=== PATIENT | female | born 1940 | race Caucasian/White ===

== ENCOUNTER 2022-10-03 10:00 | Inpatient (IN) | payer OTHER, BC ==
[~2022-10-03] VITALS: Ht 170.2 cm; Wt 81.6 kg
--- NOTE | 2022-10-03 10:00 | NUR ---
Placed in room 05 . Placed on monitor car operator, blood pressure machine and pulse oximeter. To gown for exam. Side rails up. Report given to AJIT STRAUSS.
[2022-10-03 10:27] VITALS: BP_SYST 160
--- NOTE | 2022-10-03 10:50 | NUR ---
ER at bedside examining patient.
[2022-10-03] MEDS ORDERED: GABAPENTIN 300 MG CAPSULE PO ONE (11:00)
[2022-10-03] MEDS ORDERED: NACL 0.9% 1,000 ML IV ONE (11:00)
--- NOTE | 2022-10-03 11:05 | NUR ---
EKG performed at BS by STUDENT RN EVALUATED BY RP. Physician given copy of EKG for review.
--- NOTE | 2022-10-03 11:19 | NUR ---
RADIOLOGY TEAM BEDSIDE FOR XRAY ANALYSIS.
[2022-10-03 11:21] LABS: BASOPHILS # (AUTO) 0.1 K/uL (0.0-0.2); BASOPHILS % (AUTO) 0.4 % (0.0-2.0); EOSINOPHILS # (AUTO) 0.1 K/uL (0.0-0.4); EOSINOPHILS % (AUTO) 0.4 % (0.0-4.0); HEMATOCRIT 36.7 % (36-48); HEMOGLOBIN 12.2 g/dL (12.0-16.0); LYMPHOCYTES # (AUTO) 1.6 K/uL (1.0-5.5); LYMPHOCYTES % (AUTO) 11.3 % (20.5-51.5); MEAN CORPUSCULAR HEMOGLOBIN 28 pg (27-31); MEAN CORPUSCULAR HGB CONC 33 % (32-36); MEAN CORPUSCULAR VOLUME 86 fL (79.0-98.0); MONOCYTES # (AUTO) 0.8 K/uL (0.0-1.0); MONOCYTES % (AUTO) 5.8 % (1.7-9.3); NEUTROPHILS # (AUTO) 11.5 K/uL (1.8-7.7); NEUTROPHILS % (AUTO) 82.1 % (40.0-70.0); PLATELET COUNT (AUTO) 224 K/uL (130-430); RED BLOOD CELL COUNT(AUTO) 4.28 MIL/uL (4.2-6.2)
[2022-10-03 11:39] LABS: ANION GAP 12 (5-15); CALCIUM 8.8 mg/dL (8.4-11.0); CHLORIDE 100 mmol/L (98-107); CREATININE 1.83 mg/dL (0.55-1.30); GLUCOSE 167 mg/dL (70-99); UREA NITROGEN, BLOOD 48 mg/dL (8-21)
--- NOTE | 2022-10-03 11:55 | NUR ---
Pt assisted to bedpan for urine collection. pt repositioned and clean and dry.
[2022-10-03 11:58] LABS: ALANINE AMINOTRANSFERASE 27 U/L (12-78); ASPARTATE AMINOTRANSFERASE 21 U/L (10-37); PHOSPHORUS 3.8 mg/dL (2.7-4.5); TOTAL BILIRUBIN 0.5 mg/dL (0.0-1.0)
--- NOTE | 2022-10-03 12:00 | NUR ---
Urine specimen collected and analyzed in ER. Results given to ER .
--- NOTE | 2022-10-03 12:08 | NUR ---
Critical lab value: Troponin 95 reported by lab Koby, notified MD Butcher
[2022-10-03 12:18] LABS: BILIRUBIN,URINE NEGATIVE (NEGATIVE); BLOOD, URINE NEGATIVE (NEGATIVE); COLOR,URINE YELLOW (YELLOW); GLUCOSE,URINE TRACE (NEGATIVE); KETONES,URINE NEGATIVE (NEGATIVE); LEUKOCYTE ESTERASE ,URINE 1+ (NEGATIVE); NITRITE, URINE NEGATIVE (NEGATIVE); PH,URINE 5.5 (5.0-8.0); PROTEIN URINE 2+ (NEGATIVE); UROBILINOGEN,URINE 0.2 (0.2-1.0)
[2022-10-03 12:22] LABS: CLARITY/URINE HAZY (CLEAR)
[2022-10-03 12:27] LABS: BACTERIA,URINE MODERATE /HPF (None Seen); RBC,URINE 0-3 /HPF (0-3)
[2022-10-03] MEDS ORDERED: ASPIRIN 325 MG TABLET PO ONE (12:30)
--- NOTE | 2022-10-03 12:30 | NUR ---
# 20 gauge angiocath placed to right antecubital. Use of asceptic technique. Opsite placed over site. Blood return noted. Blood for lab drawn from site. Flushed with 10 cc of normal saline. No evidence of infiltration noted. Patient tolerated well.
--- NOTE | 2022-10-03 12:48 | NUR ---
Pt notified of admission request, gowned up, covid swab collected, pt repositioned and vitals monitored. VSS.
--- NOTE | 2022-10-03 13:07 | NUR ---
confidential secretary with calls out to page MD Lemon for admission orders.
--- NOTE | 2022-10-03 13:08 | NUR ---
Pt renea contacting family to provide medication list.
[2022-10-03] MEDS ORDERED: cefTRIAXone 1 GM IVPB PREMIX 50 ML IV ONE (13:15)
--- NOTE | 2022-10-03 13:15 | NUR ---
Admit bed requested Patient will be admitted to care of . Admitted to tele unit. Diagnosis uti and Nstemi Inpatient (Yes or No) y Observation (Yes or No) o Orientation concerns or request close to nursing station (Yes or No) no Covid Status neg On vent or bipap n Isolation requirements n Needs a sitter no From Home (Yes or if No enter name of facility) home Requires Dialysis (Yes or No) no Med Rec Completed (Yes of No) yes
--- NOTE | 2022-10-03 14:06 | NUR ---
ACCUCHCK: BLOOD SUGAR 151
[2022-10-03] MEDS ORDERED: HYDR-4038 PO (14:50)
[2022-10-03] MEDS ORDERED: HYDR100T25 PO (14:50)
[2022-10-03] MEDS ORDERED: GLIP2.5T3 PO (14:50)
[2022-10-03] MEDS ORDERED: BISO10TA13 PO (14:50)
--- NOTE | 2022-10-03 14:52 | NUR ---
Admitting MD Lemon bedside evaluation. Family son encouraged pt admission.
[2022-10-03] MEDS ORDERED: DEXTROSE 50% JECT 50 ML DISP.SYRIN IVP PRN (15:30)
[2022-10-03 16:00] VITALS: BP_SYST 162
--- NOTE | 2022-10-03 16:00 | NUR ---
patient received from ED, patient alert and oriented x 4. No wounds present on admission, denies any pain. Patient vital signs WNL. Patient able to transfer from stretcher to bed with minimal assist. Belonging assessment complete. No s/sx of respiratory distress. Will continue to monitor.
--- NOTE | 2022-10-03 17:00 | NUR ---
Patient will be admitted to [facility]. Admitted to tele unit. Will go to room 121a. Belongings list completed. Complete and up to date summary report printed. SBAR report to be given at bedside with opportunity for questions.
[2022-10-03] MEDS: 0.45% NACL 1,000 ML IV SCH (18:03)
--- NOTE | 2022-10-03 19:45 | NUR ---
RECEIVED PT LYING IN BED, NO DISTRESS NOTED, DENIES PAIN. AAOX4, O2 SAT 96% ON RA, IV SITE TO RT AC SITE CDI. WEAK PULSES NOTED TO BLE. DRYNESS, FRAGILE SKIN NOTED TO ALL EXTREMITIES. ASSISTED PT BEDSIDE COMMODE, MAX ASSISTED NEEDED. PT WAS DIZZY, WILL NEED BED WEBBER. PT WANTS TO SIT AT THE EDGE OF THE BED. INSTRUCTED PT NOT TO ATTEMPT TO GET UP, VERBALIZED UNDERSTANDING.
[2022-10-03 20:00] VITALS: BP_SYST 160
[2022-10-03] MEDS: hydrALAZINE HCL 25 MG TABLET PO SCH (21:21)
[2022-10-03] MEDS: INSULIN REGULAR, HUMAN 100 UNITS/ML, 3 ML VIAL (humuLIN R) SUBCUT PRN (21:33)
[2022-10-04 00:35] VITALS: BP_SYST 170
[2022-10-04] MEDS: 0.45% NACL 1,000 ML IV SCH ×3 (02:15→20:56)
[2022-10-04 05:23] LABS: BASOPHILS % (AUTO) 0.6 % (0.0-2.0); EOSINOPHILS # (AUTO) 0.2 K/uL (0.0-0.4); EOSINOPHILS % (AUTO) 2.7 % (0.0-4.0); HEMATOCRIT 34.9 % (36-48); HEMOGLOBIN 11.7 g/dL (12.0-16.0); LYMPHOCYTES # (AUTO) 1.6 K/uL (1.0-5.5); MEAN CORPUSCULAR HEMOGLOBIN 29 pg (27-31); MEAN CORPUSCULAR HGB CONC 34 % (32-36); MEAN CORPUSCULAR VOLUME 86 fL (79.0-98.0); MONOCYTES # (AUTO) 0.7 K/uL (0.0-1.0); MONOCYTES % (AUTO) 7.9 % (1.7-9.3); NEUTROPHILS # (AUTO) 6.1 K/uL (1.8-7.7); NEUTROPHILS % (AUTO) 70.1 % (40.0-70.0); PLATELET COUNT (AUTO) 200 K/uL (130-430); RED BLOOD CELL COUNT(AUTO) 4.07 MIL/uL (4.2-6.2); RED CELL DISTRIBUTION WIDTH 14.1 % (9.0-15.0); WHITE BLOOD COUNT (AUTO) 8.7 K/uL (4.8-10.8)
[2022-10-04 05:51] LABS: ALANINE AMINOTRANSFERASE 26 U/L (12-78); ALBUMIN 2.7 g/dL (3.4-4.8); ANION GAP 10 (5-15); ASPARTATE AMINOTRANSFERASE 17 U/L (10-37); CALCIUM 8.2 mg/dL (8.4-11.0); CHLORIDE 103 mmol/L (98-107); CREATININE 1.49 mg/dL (0.55-1.30); GLUCOSE 124 mg/dL (70-99); TOTAL BILIRUBIN 0.4 mg/dL (0.0-1.0); UREA NITROGEN, BLOOD 41 mg/dL (8-21)
[2022-10-04 07:42] LABS: LYMPHOCYTES % (AUTO) 18.7 % (20.5-51.5)
--- NOTE | 2022-10-04 07:45 | NUR ---
OPENING NOTE; PT RESTING IN BED, BREATHING NON-LABORED AND REGULAR ON ROOM AIR. DENIES ANY ACUTE DISTRESS OR SOB. BED IS LOCKED AND AT LOW POSITION. IVF RUNNING ORDERED. IV SITE REMAIN INTACT AND PATENT. NO IV INFILTRATION OR INFECTION NOTED. CALL LIGHT WITHIN REACH. ENCOURAGED PT TO USE CALL LIGHT FOR ASSISTANCE. WILL CONT TO MONITOR FOR ANY CHANGES.
[2022-10-04 08:00] VITALS: BP_SYST 182
[2022-10-04] MEDS: hydrALAZINE HCL 25 MG TABLET PO SCH ×2 (09:16→20:46)
[2022-10-04] MEDS: INSULIN REGULAR, HUMAN 100 UNITS/ML, 3 ML VIAL (humuLIN R) SUBCUT PRN ×2 (11:26→21:00)
--- NOTE | 2022-10-04 11:29 | NUR ---
NOTES; DTR (ROSE) CALLED, ANSWERED ALL QUESTIONS. HAVE DTR TO TALK TO PT OVER THE PHONE.
[2022-10-04 13:07] VITALS: BP_SYST 156
--- NOTE | 2022-10-04 13:50 | NUR ---
NOTES; FAMILY MEMBER AT BEDSIDE, ANSWERED ALL QUESTIONS.
--- NOTE | 2022-10-04 15:15 | NUR ---
ROUND; AT BEDSIDE, ASSESSING PT.
--- NOTE | 2022-10-04 15:43 | NUR ---
CONSULTATION: REASON FOR CONSULT: ELEVATED TROP CONSULTING PHYSICIAN: ERICK ORDERED BY: VANESSA SPOKE WITH BC FROM EXCHANGE [phone]
[2022-10-04 16:29] VITALS: BP_SYST 167
--- NOTE | 2022-10-04 16:50 | NUR ---
NOTES; PT AT BEDSIDE, ASSESSING PT. PT TOLERATING WELL
[2022-10-04] MEDS ORDERED: cefTRIAXone 1 GM in D5W 50 ML IV SCH (17:00)
--- NOTE | 2022-10-04 18:45 | NUR ---
CLOSING NOTE; PT RESTING IN BED, BREATHING NON-LABORED AND REGULAR ON ROOM AIR. DENIES ANY ACUTE DISTRESS OR SOB. BED IS LOCKED AND AT LOW POSITION. IVF RUNNING ORDERED. IV SITE REMAIN INTACT AND PATENT. NO IV INFILTRATION OR INFECTION NOTED. CALL LIGHT WITHIN REACH. ENCOURAGED PT TO USE CALL LIGHT FOR ASSISTANCE. WILL ENDORSE CARE TO DREDGE OPERATOR SUPERVISOR NURSE.
--- NOTE | 2022-10-04 19:45 | NUR ---
RECEIVED PATIENT AT BEDSIDE. PATIENT WAS AXO 4 NO S/S OF DISTRESS OR DISCOMFORT. ALL NEEDS WERE MET AT THIS TIME. SAFETY CHECKS ARE DONE AND CALL LIGHT WITH IN REACH.
[2022-10-04 20:00] VITALS: BP_SYST 169
[2022-10-04] MEDS ORDERED: ATENOLOL 50 MG TABLET (TENORMIN) PO SCH (21:00)
--- NOTE | 2022-10-05 00:04 | NUR ---
PAGED DR. SUAREZ NOTIFYING HIM ABOUT PATIENT'S HEART RATE BEING LOW AND BLOOD PRESSURE HIGH. STATED TO KEEP MONITORING BOTH AND WILL RE-EVALUATE IN THE MORNING.
[2022-10-05 00:09] VITALS: BP_SYST 179
--- NOTE | 2022-10-05 03:00 | NUR ---
Patient got up to bedside commode with assistance. IV infiltrated. Old IV removed, catheter intact, no sign of bleeding. New 22G placed to right forearm, patient tolerated well. Linens changed.
--- NOTE | 2022-10-05 07:22 | NUR ---
CLOSING NOTES PATIENT IS AWAKE IN BED. BLOOD SUGAR CHECK IS DONE. HELPED PATIENT TO THE BEDSIDE COMMODE AND CHANGED HER GOWNED. NO S/S OF DISTRESS OR PAIN. BREATHING IS UNLABORED. ALL NEEDS WERE MET AT THIS TIME. HANDED PATIENT OFF TO THE RN. SAFETY CHECKS ARE DONE AND CALL LIGHT WITH IN REACH
[2022-10-05 07:38] LABS: BASOPHILS # (AUTO) 0.1 K/uL (0.0-0.2); BASOPHILS % (AUTO) 0.6 % (0.0-2.0); EOSINOPHILS # (AUTO) 0.2 K/uL (0.0-0.4); EOSINOPHILS % (AUTO) 2.6 % (0.0-4.0); HEMOGLOBIN 11.9 g/dL (12.0-16.0); LYMPHOCYTES # (AUTO) 1.5 K/uL (1.0-5.5); LYMPHOCYTES % (AUTO) 17.7 % (20.5-51.5); MEAN CORPUSCULAR HEMOGLOBIN 29 pg (27-31); MEAN CORPUSCULAR HGB CONC 34 % (32-36); MEAN CORPUSCULAR VOLUME 86 fL (79.0-98.0); MONOCYTES # (AUTO) 0.6 K/uL (0.0-1.0); MONOCYTES % (AUTO) 6.8 % (1.7-9.3); NEUTROPHILS # (AUTO) 6.2 K/uL (1.8-7.7); NEUTROPHILS % (AUTO) 72.3 % (40.0-70.0); PLATELET COUNT (AUTO) 219 K/uL (130-430); RED BLOOD CELL COUNT(AUTO) 4.06 MIL/uL (4.2-6.2); RED CELL DISTRIBUTION WIDTH 13.8 % (9.0-15.0); WHITE BLOOD COUNT (AUTO) 8.6 K/uL (4.8-10.8)
--- NOTE | 2022-10-05 08:04 | NUR ---
RECEIVED PT IN BED AWAKE AND ALERT. PT VERBALIZED "I FEEL BETTER TODAY". SAFETY CHECKS DONE, SIDE RAILS X3 UP, BED IN LOWEST POSITION, CALL LIGHT WITHIN REACH, NO S/SX OF DISTRESS.
[2022-10-05 08:08] LABS: ANION GAP 6 (5-15); CALCIUM 8.3 mg/dL (8.4-11.0); CHLORIDE 103 mmol/L (98-107); GLUCOSE 150 mg/dL (70-99); UREA NITROGEN, BLOOD 32 mg/dL (8-21)
[2022-10-05 08:21] LABS: ALANINE AMINOTRANSFERASE 22 U/L (12-78); ALBUMIN 2.4 g/dL (3.4-4.8); ASPARTATE AMINOTRANSFERASE 16 U/L (10-37); FREE T4 (FREE THYROXINE) 1.2 ng/dL (0.6-1.6); TOTAL BILIRUBIN 0.3 mg/dL (0.0-1.0)
[2022-10-05 08:23] VITALS: BP_SYST 173
[2022-10-05] MEDS: hydrALAZINE HCL 25 MG TABLET PO SCH (08:52)
[2022-10-05] MEDS ORDERED: CIPR500T5 PO (10:19)
[2022-10-05] MEDS ORDERED: LACT1TAB14 PO (10:20)
[2022-10-05] MEDS ORDERED: CIPROFLOXACIN HCL 500 MG TABLET PO ONE (10:30)
[2022-10-05] MEDS ORDERED: hydrALAZINE HCL 25 MG TABLET PO ONE ×2 (10:30→15:15)
[2022-10-05] MEDS ORDERED: BISO10TA13 PO (10:40)
[2022-10-05] MEDS ORDERED: cefTRIAXone 1 GM in D5W 50 ML IV SCH (11:00)
[2022-10-05 12:30] VITALS: BP_SYST 181
--- NOTE | 2022-10-05 13:34 | NUR ---
Dietitian Recommendations * Continue 45g CCHO, 2g Na diet * Ordered: Snacks BID * Colace for constipation * Provided nutrition education handouts on DM and Heart-Healthy Diets Submitted for SIOMARA Llanos by Thais Cannon, MPH, RD Please see Nutrition Assessment for further details. Thanks!
--- NOTE | 2022-10-05 15:02 | NUR ---
DR MEDNEZ CALLED BACK AND NOTIFIED FOR BP 190/51 HR 54. PT SCHEDULED FOR DISCHARGE. DR MENDEZ ORDERED HYDRALAZINE [address] MENDEZ STATED IF BP IS BELOW SBP 160 PT CAN BE DISCHARGE HOME.
[2022-10-05] MEDS: INSULIN REGULAR, HUMAN 100 UNITS/ML, 3 ML VIAL (humuLIN R) SUBCUT PRN (18:03)
[2022-10-05 18:21] VITALS: BP_SYST 156
--- NOTE | 2022-10-05 18:30 | NUR ---
Pt ready for discharge. Pt VS within normal limits with BP 156/59, pt verbalized "I feel fine." Pt tele box removed, IV removed, pt discharge instructions given and pt verbalized understanding. Upon arrival of pt's grandson, pt taken to the lobby via wheelchair with all belongings.
[2022-10-05] MEDS ORDERED: hydrALAZINE HCL 25 MG TABLET PO SCH (21:00)
== END 2022-10-05 19:15 | disposition home or self-care (01) | DRG 682 ==
LOC: SED 10:00 → STU 13:13
PROVIDERS: ADMIT Internal Medicine; ATTEND Internal Medicine
DX: N17.0 Acute kidney failure with tubular necrosis (principal); I21.A1 Myocardial infarction type 2; N39.0 Urinary tract infection, site not specified; E86.0 Dehydration; E11.42 Type 2 diabetes mellitus with diabetic polyneuropathy; I10 Essential (primary) hypertension; E66.9 Obesity, unspecified; Z79.899 Other long term (current) drug therapy; S60.211A Contusion of right wrist, initial encounter; W18.39XA Other fall on same level, initial encounter; Z68.28 Body mass index [BMI] 28.0-28.9, adult; Z79.84 Long term (current) use of oral hypoglycemic drugs; Z87.440 Personal history of urinary (tract) infections; Z87.891 Personal history of nicotine dependence; Y93.89 Activity, other specified; Y92.89 Other specified places as the place of occurrence of the external cause; Y99.8 Other external cause status
CPT/HCPCS: 36415; 71045; 76770; 80053; 81000; 82550; 82962; 83735; 83880; 84100; 84439; 84443; 84484; 85025; 87086; 93005; 93306; 96361; 96365; 97110-GP; 97116-GP; 97163-GP; 97530-GP; 99285; G0378; J0696; J1956; J7060

== ENCOUNTER 2023-09-28 14:46 | Emergency (ER) | payer OTHER, BC ==
[~2023-09-28] VITALS: Ht 170.2 cm; Wt 73.5 kg
[~2023-09-28 14:46] MED LIST: BISO10TA29 PO; CIPR500T5 PO; GLIP2.5T3 PO; HYDR100T25 PO; LACT1TAB14 PO
[2023-09-28 14:54] VITALS: BP_SYST 163; PULSE 58; RESP 18; TEMP 97.7; O2SAT 98
[2023-09-28] MEDS ORDERED: BACITRACIN 1 GM OINT TP ONE ×2 (15:57→16:12)
[2023-09-28] MEDS ORDERED: CEPH250C PO (15:59)
[2023-09-28 17:05] VITALS: BP_SYST 163; PULSE 58; RESP 18; TEMP 97.7; O2SAT 98
== END 2023-09-28 17:05 | disposition home or self-care (01) ==
LOC: SED 14:46
DX: S86.811A Strain of other muscle(s) and tendon(s) at lower leg level, right leg, initial encounter (principal); E11.9 Type 2 diabetes mellitus without complications; I10 Essential (primary) hypertension; Z79.899 Other long term (current) drug therapy; W01.0XXA Fall on same level from slipping, tripping and stumbling without subsequent striking against object, initial encounter; Y93.89 Activity, other specified; Y92.89 Other specified places as the place of occurrence of the external cause; Y99.8 Other external cause status
CPT/HCPCS: 73590; 99283